=== PATIENT | male | born 1950 | race Caucasian/White ===

== ENCOUNTER 2017-07-01 13:23 | Inpatient (IN) | payer MEDICARE ==
[2017-07-01] VITALS (9 sets, daily range): BP systolic 135–169; BP diastolic 72–96; PULSE 62–75; RESP 16–18; TEMP 97.7–97.9; O2SAT 97–100
[~2017-07-01] VITALS: Ht 165.1 cm; Wt 78.6 kg
[2017-07-01] MEDS ORDERED: SODIUM CHLOR 0.9% 1000 ML INJ 1,000 ML IV ONE (13:41)
[2017-07-01 13:55] LABS: BASOPHIL % 0.4 % (0.0-2.0); EOSINOPHIL % 0.9 % (0.0-4.0); HEMATOCRIT 42.1 % (39.0-51.0); LYMPH % 17.6 % (9.0-44.0); LYMPHOCYTE # 0.9 TH/MM3 (1.0-4.8); MEAN CELL VOLUME 95.8 FL (80.0-100.0); MEAN CORPUSCULAR HEMOGLOBIN 31.9 PG (27.0-34.0); MEAN CORPUSCULAR HGB CONC 33.3 % (32.0-36.0); MEAN PLATELET VOLUME 7.2 FL (7.0-11.0); MONO % 7.4 % (0.0-8.0); MONOCYTE # 0.4 TH/MM3 (0-0.9); NEUT % 73.7 % (16.0-70.0); PLATELET COUNT 207 TH/MM3 (150-450); RED CELL DISTRIBUTION WIDTH 12.5 % (11.6-17.2); WHITE BLOOD COUNT 5.3 TH/MM3 (4.0-11.0)
[2017-07-01 14:03] LABS: CHLORIDE 104 MEQ/L (98-107); SODIUM (NA) 138 MEQ/L (136-145)
[2017-07-01 14:06] LABS: BICARBONATE 27.3 MEQ/L (21.0-32.0); CALCIUM 8.3 MG/DL (8.5-10.1); GLUCOSE,RANDOM 172 MG/DL (74-106)
[2017-07-01 14:07] LABS: BLOOD UREA NITROGEN 14 MG/DL (7-18); PROTHROMBIN TIME - PATIENT 10.4 SEC (9.8-11.6)
[2017-07-01 14:10] LABS: GLOMERULAR FILTRATION RATE 75 ML/MIN (>89)
--- NOTE | 2017-07-01 14:13 | RADRPT ---
EXAM DATE/TIME: 07/01/2017 13:45 [facility] COMPARISON: No previous studies available for comparison. INDICATIONS : Stroke alert . Dizziness. RADIATION DOSE: 62.61 CTDIvol (mGy) This report was called by Dr. Tran to Dr. Weiner at 2: 05 PM? MEDICAL HISTORY : Cerebrovascular disease. SURGICAL HISTORY : Carotid endarterectomy. Cerebellar stent. ENCOUNTER: Initial ACUITY: 1 day PAIN SCALE: 0/10 LOCATION: cranial TECHNIQUE: Multiple contiguous axial images were obtained of the head. Using automated exposure control and adj ustment of the mA and/or kV according to patient size, radiation dose was kept as low as reasonably a chievable to obtain optimal diagnostic quality images. DICOM format image data is available electro nically for review and comparison. FINDINGS: The bony calvarium is intact. Major anatomic landmarks are correctly situated normal ventricles no ev idence of cranial hemorrhage or extradural defect or mass effect. In the posterior left cerebellar hemisphere there is area of d iminished density over to centimeters in size which could represent an infarct of indeterminate age. Additionally in the left hemisphere cerebral towards the vertex there is an asymmetric prominence of sulci with internal to this low density in white matter in the possibility of infarct encephalomalaci a in the left posterior parietal occipital region. CONCLUSION: Abnormal scan. Low-density 2 cm sized posterior left cerebellar hemisphere suggesting edema or stroke indeterminate age. Findings in the left parieto-occipital region suggesting remote infarct. Patient would benefit from further evaluation with MRI to determine acuity Discussed with Dr. Weiner. At 2: 05 PM Geovani Tran MD on July 01, 2017 at 14:05 Board Certified Radiologist. This report was verified electronically.
[2017-07-01 14:14] LABS: TROPONIN I LESS THAN 0.02 NG/ML (0.02-0.05)
[2017-07-01] MEDS ORDERED: IODIXANOL 320 MG/ML 10 ML VIAL (for Rad CT) IVCONTRAST ONE (14:29)
--- NOTE | 2017-07-01 14:29 | PD ---
HPI Chief Complaint: Neuro Symptoms/ Deficits Time Seen by Provider: 13:35 Travel History International Travel<30 days: No Contact w/Intl Traveler<30days: No Traveled to known affect area: No History of Present Illness HPI Patient 66-year-old male presents emergency department for evaluation of sudden onset of dizziness approximately 45 minutes prior to arrival. 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 Patient states that his cousin used to work in healthcare and told him that if he ever had any symptoms that were concerning that he should present to the emergency department for evaluation of possible stroke. Patient denies any new focalized weakness denies any visual deficits. Denies any headaches. He states symptoms feel similar to her previous cerebellar stroke is had though not as severe. He's never had a history of vertigo. Denies any nausea vomiting. He states that he felt very unbalanced at home and normal spell. Denies any chest pain shortness of breath. Symptoms for 45 minutes, constant, associated signs symptoms and context as above PFSH Past Medical History Hx Anticoagulant Therapy: Yes High Cholesterol: Yes Cerebrovascular Accident: Yes Diminished Hearing: No Hypertension: Yes Immunizations Current: Yes Tetanus Vaccination: Unknown Influenza Vaccination: No Past Surgical History Cardiac Surgery: Yes (lt endarectomy) Other Surgery: Yes (stent cereebellum) Social History Alcohol Use: No Tobacco Use: No Substance Use: No Allergies-Medications (Allergen,Severity, Reaction): Coded Allergies: No Known Allergies (Verified Allergy, Unknown, 07/01/17) Reported Meds & Prescriptions Reported Meds & Active Scripts Active Reported Atorvastatin (Atorvastatin Calcium) 40 Mg Tab 40 Mg PO HS Losartan-Hydrochlorothiazide 50-12.5 Mg Tab 1 Tab PO DAILY Metoprolol Tartrate 25 Mg Tab 25 Mg PO BID Aspirin 325 Mg Tab 325 Mg PO DAILY Plavix (Clopidogrel Bisulfate) 75 Mg Tab 75 Mg PO DAILY Review of Systems Except as stated in HPI: all other systems reviewed are Neg Physical Exam Narrative GENERAL: Well-developed well-nourished no obvious distress SKIN: Focused skin assessment warm/dry. HEAD: Atraumatic. Normocephalic. EYES: Pupils equal and round. No scleral icterus. No injection or drainage. ENT: No nasal bleeding or discharge. Mucous membranes pink and moist. NECK: Trachea midline. No JVD. CARDIOVASCULAR: Regular rate and rhythm. No murmur appreciated. RESPIRATORY: No accessory muscle use. Clear to auscultation. Breath sounds equal bilaterally. GASTROINTESTINAL: Abdomen soft, non-tender, nondistended. Hepatic and splenic margins not palpable. MUSCULOSKELETAL: No obvious deformities. No clubbing. No cyanosis. No edema. NEUROLOGICAL: Awake and alert. Cranial nerves II through XII are grossly intact and nonfocal, 5 out of 5 strength in the left upper and left lower extremity, 4 out of 5 strength in the right upper and right lower extremity. There is no ataxia with tbvcle-znis-[id number] testing bilaterally, no ataxia with heel greenfield testing bilaterally. Patient attempts to ambulate when he rises out of a chair he does fall backwards into the chair again, on second attempt he has a wide-based gait no truncal ataxia but has a very deliberate slow gait, he was able to get into Romberg position when closing his eyes he rocks back and forth significantly but is able to correct himself. Babinski signs are downgoing bilaterally PSYCHIATRIC: Appropriate mood and affect; insight and judgment normal. Data Data Last Documented VS Vital Signs Date Time Temp Pulse Resp B/P (MAP) Pulse Ox O2 Delivery O2 Flow Rate FiO2 07/01/17 15:20 70 16 140/80 (100) 98 Room Air 07/01/17 13:30 97.7 Orders Orders Cath For Specimen (07/01/17 13:41) Neuro Checks Q2HX12,Q4H (07/01/17 13:41) Nursing Bedside Swallow Assess .ONCE (07/01/17 13:41) Activity Bed Rest (07/01/17 13:41) Diet Npo (07/01/17 Lunch) Prothrombin Time / Inr (Pt) (07/01/17 13:41) Act Partial Throm Time (Ptt) (07/01/17 13:41) Complete Blood Count With Diff (07/01/17 13:41) Basic Metabolic Panel (Bmp) (07/01/17 13:41) Fibrinogen (07/01/17 13:41) Creatine Kinase (Cpk) (07/01/17 13:41) Troponin I (07/01/17 13:41) Ua Includes Microscopic (07/01/17 13:41) Drug Screen, Random Urine (07/01/17 13:41) Type And Screen (07/01/17 13:41) Ct Brain W/O Iv Contrast(Rout) (07/01/17 ) Cta Brain W Iv Contrast W 3d (07/01/17 13:41) Cta Neck W Iv Contrast W 3d (07/01/17 13:41) Electrocardiogram (07/01/17 ) Consult Neurology (07/01/17 13:41) Sodium Chlor 0.9% 1000 Ml Inj (Ns 1000 M (07/01/17 13:41) Ecg Monitoring (07/01/17 13:41) Iv Access Insert/Monitor (07/01/17 13:41) NPO (07/01/17 13:41) Oximetry (07/01/17 13:41) Resp Oxygen Nc Stroke (07/01/17 ) (Hub Use Only)Inp Phy Cons/Ref (07/01/17 14:00) CKMB (07/01/17 13:30) CKMB% (07/01/17 13:30) Heparin Inj (Heparin Inj) (07/01/17 15:00) Thyroid Stimulating Hormone (07/01/17 14:22) Vitamin B12 (07/01/17 14:22) Lipid Profile (07/01/17 14:22) Hemoglobin (Hgb) A1c (07/01/17 14:22) Iodixanol 320 Inj (Rad Ct) (Visipaque 32 (07/01/17 14:29) Mri Brain W/O Contrast (07/01/17 15:55) Dipyridamole-Aspirin 200-25 Mg (Aggrenox (07/01/17 21:00) Aspirin Ec (Ecotrin Ec) (07/02/17 09:00) Us Carotid Arteries Comp Bilat (07/01/17 ) Admit Order (Ed Use Only) (07/01/17 ) Labs Laboratory Tests Test 07/01/17 13:30 White Blood Count 5.3 TH/MM3 Red Blood Count 4.40 MIL/MM3 Hemoglobin 14.0 GM/DL Hematocrit 42.1 % Mean Corpuscular Volume 95.8 FL Mean Corpuscular Hemoglobin 31.9 PG Mean Corpuscular Hemoglobin Concent 33.3 % Red Cell Distribution Width 12.5 % Platelet Count 207 TH/MM3 Mean Platelet Volume 7.2 FL Neutrophils (%) (Auto) 73.7 % Lymphocytes (%) (Auto) 17.6 % Monocytes (%) (Auto) 7.4 % Eosinophils (%) (Auto) 0.9 % Basophils (%) (Auto) 0.4 % Neutrophils # (Auto) 4.0 TH/MM3 Lymphocytes # (Auto) 0.9 TH/MM3 Monocytes # (Auto) 0.4 TH/MM3 Eosinophils # (Auto) 0.0 TH/MM3 Basophils # (Auto) 0.0 TH/MM3 CBC Comment DIFF FINAL Differential Comment Prothrombin Time 10.4 SEC Prothromb Time International Ratio 1.0 RATIO Activated Partial Thromboplast Time 24.3 SEC Fibrinogen 265 mg/dL Blood Urea Nitrogen 14 MG/DL Creatinine 1.00 MG/DL Random Glucose 172 MG/DL Calcium Level 8.3 MG/DL Sodium Level 138 MEQ/L Potassium Level 3.7 MEQ/L Chloride Level 104 MEQ/L Carbon Dioxide Level 27.3 MEQ/L Anion Gap 7 MEQ/L Estimat Glomerular Filtration Rate 75 ML/MIN Total Creatine Kinase 351 U/L Creatine Kinase MB 4.7 NG/ML Creatine Kinase MB % 1.3 % Troponin I LESS THAN 0.02 NG/ML Triglycerides Level 63 MG/DL Cholesterol Level 101 MG/DL LDL Cholesterol 49 MG/DL HDL Cholesterol 39.0 MG/DL Cholesterol/HDL Ratio 2.58 RATIO Vitamin B12 Level 768 PG/ML Thyroid Stimulating Hormone 3rd Gen 2.170 uIU/ML MDM Medical Screen Exam Complete: Yes Emergency Medical Condition: Yes Differential Diagnosis Vertigo, cerebellar stroke, vertebral artery stroke, carotid stenosis. Narrative Course Patient roomed in emergency department, he has vague symptoms but certainly significant risk factors for a cerebellar stroke, given that he isn't sided window stroke alert was activated and the patient was taken expeditiously to CAT scan which was negative without contrast. The CT angiogram did show significant stenosis of the right carotid system and the patient has had endarterectomy of the left carotid in the past. The patient was discussed with who states that given the mild symptoms the patient should only be offered TPA if he was having gait instability, we discussed his gait instability and the patient was therefore offered TPA by me. After according the risks benefits competitions and alternatives including the risk of life- threatening bleeding the patient states that his symptoms are mild enough that he would like to decline TPA at this time. The patient was then recommended for MRI of his brain as well as admission to the hospital given the level of stenosis for further workup. He is agreeable. The patient was discussed with Dr. Tucker will be admitted to the main hospital as he may need vascular surgery consult. Symptoms of dizziness have persisted in the emergency department but no ataxia multiple examinations. Blood work otherwise unremarkable. He is stable for floor admission. Stroke Alert NIHSS NIH Stroke Scale Result: 0 NIHSS Time Completed: 13:40 Diagnosis Diagnosis: Primary Impression: Gait disorder Admitting Physician Requests: Admit Condition: Stable Fernando Weiner MD Jul 01, 2017 14:29
--- NOTE | 2017-07-01 14:29 | RADRPT ---
EXAM DATE/TIME: 07/01/2017 13:45 [facility] COMPARISON: CT BRAIN W/O CONTRAST, July 01, 2017, 13:45. INDICATIONS : Stroke alert. Dizziness. IV CONTRAST: 85 cc Visipaque (iodixanol) IV ; Cumulative dose for multiple exams. RADIATION DOSE: 43.13 CTDIvol (mGy) ; Combined studies MEDICAL HISTORY : Cerebrovascular disease. SURGICAL HISTORY : Carotid endarterectomy. Cerebellar stent. ENCOUNTER: Initial ACUITY: 1 day PAIN SCALE: 0/10 LOCATION: cranial TECHNIQUE: Volumetric scanning was performed using a multi-row detector CT scanner. The data was post processed with a variety of visualization algorithms including full volume maximum intensity projection, multi -planar sliding thin slab reformation, curved planar reformation, and surface rendering techniques. Using automated exposure control and adjustment of the mA and/or kV according to patient size, radiat ion dose was kept as low as reasonably achievable to obtain optimal diagnostic quality images. DICO M format image data is available electronically for review and comparison. FINDINGS: There is excellent visualization of the major intracranial arteries out to the second-order branch ve ssels. There is no evidence for aneurysm, vessel truncation or stenosis, and no evidence for vascula r malformation. The anterior communicating artery is patent and the posterior communicating arteries are not patent w ith the posterior cerebral arteries originate off the basilar vertebral posterior system CONCLUSION: Normal examination. Geovani Tran MD on July 01, 2017 at 14:23 Board Certified Radiologist. This report was verified electronically.
[2017-07-01] MEDS ORDERED: METO25TA3 PO (14:39)
[2017-07-01] MEDS ORDERED: ATOR40TA16 PO (14:39)
[2017-07-01] MEDS ORDERED: ASPI-183 PO (14:39)
[2017-07-01] MEDS ORDERED: PLAV75TA29 PO (14:39)
[2017-07-01] MEDS ORDERED: LOSA50TA2 PO (14:39)
--- NOTE | 2017-07-01 14:41 | RADRPT ---
EXAM DATE/TIME: 07/01/2017 13:45 [facility] COMPARISON: CTA BRAIN W 3D RECON, July 01, 2017, 13:45. CT BRAIN W/O CONTRAST, July 01, 2017, 13:45. INDICATIONS : Stroke alert. Dizziness. IV CONTRAST: 85 cc Visipaque (iodixanol) IV ; Cumulative dose for multiple exams. RADIATION DOSE: 43.13 CTDIvol (mGy) ; Combined studies MEDICAL HISTORY : Cerebrovascular disease. SURGICAL HISTORY : Carotid endarterectomy. Cerebellar stent. ENCOUNTER: Initial ACUITY: 1 day PAIN SCALE: 0/10 LOCATION: neck Elevated flow velocities and ICA/CCA ratios have been found to correlate with increased degrees of vessel stenosis, calculated as percentage of diameter relative to a normal segment of distal ICA/CCA. TECHNIQUE: Volumetric scanning was performed using a multirow detector CT scanner. The data was post processed with a variety of visualization algorithms including full-volume maximum intensity projection, multip lanar sliding thin-slab reformation, curved-planar reformation, and surface-rendering techniques. Us ing automated exposure control and adjustment of the mA and/or kV according to patient size, radiatio n dose was kept as low as reasonably achievable to obtain optimal diagnostic quality images. DICOM f ormat image data is available electronically for review and comparison. FINDINGS: AORTIC ARCH: There is a three-vessel origin of the great vessels from the aorta. No evidence of ostial narrowing. RIGHT CAROTID: There is a stenotic plaque at the origin of the right internal carotid and both calcific carotid deja ry is intact. The carotid bulb has a normal configuration without and soft LEFT CAROTID: There is a short segment cage type narrowing at the origin of the left internal carotid may be border line stenotic. VERTEBRALS: Left vertebral is dominant with a dense calcific plaque at its origin. A right vertebral artery at it s origin and the lower neck is not visualized but is interspersed diminutive in the mid and upper cer vical spine CONCLUSION: There is a stenotic soft and calcific plaque initial segment of the right internal carotid artery. Th is could be further evaluated with ultrasound. Short segment cage type circumferential lesion possi devonte borderline stenotic at the origin the left internal carotid artery. Dense calcium deposit at the origin of the dominant left vertebral artery. Right vertebral artery is not visualized at its origin however is seen there is a diminutive small vessel in the mid to upper cervical spine. Geovani Tran MD on July 01, 2017 at 14:30 Board Certified Radiologist. This report was verified electronically.
[2017-07-01] MEDS: HEPARIN SODIUM - SQ 10,000 UNITS/ML VIAL SQ SCH ×2 (15:35→22:39)
--- NOTE | 2017-07-01 16:13 | PD.CONS ---
History of Present Illness Service Neurology Consult Requested By er Reason for Consult stroke alert Primary Care Physician Non-Staff History of Present Illness 66 y/o m presents to er for dizziness. stroke alert called. hx of stroke 2011 with symptoms of severe vertigo, n/v, imbalance. found to have cerebellar infarct. then had a stent placed at [facility] in the posterior circulation? current symptoms consistent of mild gait imbalance and lightheadedness, no vertigo. denies any focal weakness or vision loss. pt was offered iv tpa for worsening gait, however he elects to hold off understanding r/b. residuals from previous infarct include gait d/o, occasional speech changes and left sided dystaxia at times. he takes aspirin and plavix and [place]. on disability from previous strokes. had a left cea 2004. ct brain old left high parietal and left cerebellar infarct. cta brain nml. cta carotids- rt carotid plaque Past Medical History Hx Anticoagulant Therapy: Yes High Cholesterol: Yes Cerebrovascular Accident: Yes Hypertension: Yes Past Surgical History Cardiac Surgery: Yes (lt endarterectomy) Other Surgery: Yes (stent posterior circulation?) Social History Alcohol Use: No Tobacco Use: No Substance Use: No Allergies-Medications (Allergen,Severity, Reaction): Coded Allergies: No Known Allergies (Verified Allergy, Unknown, 07/01/17) Review of Systems All other ROS: ROS reviewed as documented in chart Past Family Social History Allergies: Coded Allergies: No Known Allergies (Verified Allergy, Unknown, 07/01/17) Active Ordered Medications Current Medications Medications (Trade) Dose Ordered Sig/Justin Route Start Time Stop Time Status Last Admin Sodium Chloride 1,000 ml @ 70 mls/hr [id number] ONCE IV 07/01/17 13:41 07/02/17 03:58 07/01/17 14:07 (Heparin Inj) 5,000 units Q8H SQ 07/01/17 15:00 07/01/17 15:35 Exam I&O / VS Vital Signs Date Time Temp Pulse Resp B/P (MAP) Pulse Ox O2 Delivery O2 Flow Rate FiO2 07/01/17 14:15 75 98 Room Air 07/01/17 14:09 98 Room Air 07/01/17 14:09 98 Room Air 07/01/17 14:06 75 18 135/78 (97) 98 Room Air 07/01/17 13:30 97.7 73 18 165/74 (104) 100 General: Alert and Oriented, No acute distress Eye: EOMI Respiratory: Non-labored respirations Cardiology: Normal rate Musculoskeletal: ROM Neurologic: Alert, Oriented, Normal sensory, CN II-XII intact, Normal DTR's Psychiatric: Cooperative, Appropriate mood & affect, Normal judgement Exam Comments a and ox 3, follows, rare episodes of dysfluency, eomi, vff, ou 3-2mm, no drift but mild l>rt ue dystaxia, msr sym,, pin nml Review/Management Diagnosis/Plan: (1) Gait disorder ICD Codes: R26.9 - Unspecified abnormalities of gait and mobility Status: Acute Plan: acute on chronic possible tia vs htn urgency, vascular constriction recs mri brain if feasible with stent echo carotid u/s to f/u rt/left stenosis- although not felt to be cause of his current symptoms change to aggrenox lipids/tsh/hba1c bp contol exercise p.t. 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
[2017-07-01] MEDS ORDERED: GLUCAGON 1 MG/ML VIAL OTHER PRN (16:30)
[2017-07-01] MEDS ORDERED: DEXTROSE 50% IN WATER 50 ML VIAL(D50) IV PUSH PRN (16:30)
[2017-07-01] MEDS ORDERED: HEPARIN-D5W 25,000 U/250 ML 250 ML IV PRN (16:30)
[2017-07-01] MEDS ORDERED: SODIUM CHLORIDE 0.9% FLUSH 10 ML FLUSH IV FLUSH PRN (16:30)
[2017-07-01 16:38] LABS: CHOLESTEROL 101 MG/DL (120-200); TRIGLYCERIDES 63 MG/DL (42-150)
--- NOTE | 2017-07-01 16:40 | RADRPT ---
EXAM DATE/TIME: 07/01/2017 16:04 [facility] COMPARISON: CT BRAIN W/O CONTRAST, July 01, 2017, 13:45. INDICATIONS : Stroke alert. MEDICAL HISTORY : Stroke SURGICAL HISTORY : Carotid endarterectomy. Fusion, lumbar. ENCOUNTER: Initial ACUITY: 1 day PAIN SCORE: 0/10 LOCATION: Head TECHNIQUE: Multiplanar, multisequence MRI of the brain was performed without contrast. FINDINGS: CEREBRUM: Remote infarcts left occipital, parietal lobe and left occipital lobe. The ventricles are normal for age. No evidence of midline shift, mass lesion, hemorrhage or acute infarction. No extraaxial fluid collections are seen. The pituitary gland and suprasellar cistern are normal in configuration. WHITE MATTER: No significant signal abnormalities are seen in the white matter. POSTERIOR FOSSA: The brainstem is intact. The 4th ventricle is midline. The cerebellopontine angle is unremarkable. The cerebellar tonsils are normal in position. DIFFUSION IMAGING: No focal areas of restricted diffusion are seen. No evidence of acute infarction. EXTRACRANIAL: The visualized portions of the orbits and paranasal sinuses are unremarkable. CONCLUSION: 1. Remote infarcts left cerebellum and left parietal and left occipital lobes 2. No acute infarct. Jairo Rivas MD on July 01, 2017 at 16:35 Board Certified Radiologist. This report was verified electronically.
[2017-07-01] MEDS: INSULIN ASPART SUPPLEMENTAL SCALE SQ SCH ×2 (17:00→22:39)
[2017-07-01 17:03] LABS: HEMATOCRIT 40.6 % (39.0-51.0); HEMOGLOBIN 13.6 GM/DL (13.0-17.0); MEAN CELL VOLUME 94.8 FL (80.0-100.0); MEAN CORPUSCULAR HEMOGLOBIN 31.8 PG (27.0-34.0); MEAN CORPUSCULAR HGB CONC 33.6 % (32.0-36.0); MEAN PLATELET VOLUME 7.1 FL (7.0-11.0); PLATELET COUNT 200 TH/MM3 (150-450); RED BLOOD COUNT 4.28 MIL/MM3 (4.50-5.90); RED CELL DISTRIBUTION WIDTH 12.8 % (11.6-17.2); WHITE BLOOD COUNT 6.2 TH/MM3 (4.0-11.0)
[2017-07-01 17:03] LABS: CHOLESTEROL/ HDL RATIO 2.58 RATIO; LDL CHOLESTEROL 49 MG/DL (0-99)
[2017-07-01 21:51] LABS: HEMOGLOBIN A1C 6.6 % (4.3-6.0)
[2017-07-01 21:52] LABS: HEMOGLOBIN A1C 6.6 % (4.3-6.0)
[2017-07-01] MEDS: SODIUM CHLORIDE 0.9% FLUSH 10 ML FLUSH IV FLUSH SCH (22:39)
[2017-07-01] MEDS: DIPYRIDAMOLE/ASPIRIN 200 MG/25 MG CAP PO SCH (22:39)
[2017-07-02 00:13] VITALS: BP 137/84; PULSE 72; RESP 17; TEMP 97.8; O2SAT 96
[2017-07-02 02:58] VITALS: PULSE 65
[2017-07-02 04:52] VITALS: BP 149/79; PULSE 79; RESP 17; TEMP 97.8; O2SAT 98
[2017-07-02] MEDS: HEPARIN SODIUM - SQ 10,000 UNITS/ML VIAL SQ SCH ×2 (06:02→15:00)
[2017-07-02] MEDS: INSULIN ASPART SUPPLEMENTAL SCALE SQ SCH ×2 (08:00→12:00)
--- NOTE | 2017-07-02 08:34 | HHI.PR ---
Review/Management Diagnosis/Plan: (1) Gait disorder ICD Codes: R26.9 - Unspecified abnormalities of gait and mobility Status: Acute Plan: acute on chronic possible tia vs htn urgency, vascular constriction mri brain no acute stroke lipids in good range hba1c >6 left cervicocephalic spasm- will add flexeril prn recs neuro stable bp control carotid u/s to f/u rt/left stenosis- pending exercise p.t. 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 ICD Codes: Z86.73 - Personal history of transient ischemic attack (TIA), and cerebral infarction without residual deficits Status: Chronic (4) HTN (hypertension) ICD Codes: I10 - Essential (primary) hypertension Status: Chronic Plan: resume bp meds long-term goal 120/80 Subjective Subjective Comments No acute events reported No headache +mild left neck pain No chest pain No dyspnea Active Medications Current Medications Medications (Trade) Dose Ordered Sig/Justin Route Start Time Stop Time Status Last Admin (Heparin Inj) 5,000 units Q8H SQ 07/01/17 15:00 07/02/17 06:02 (Aggrenox 200-25 Mg) 1 cap Q12HR PO 07/01/17 21:00 07/01/17 22:39 (Ecotrin Ec) 81 mg DAILY PO 07/02/17 09:00 (NS Flush) 2 ml BID IV FLUSH 07/01/17 21:00 (NS Flush) 2 ml UNSCH PRN IV FLUSH 07/01/17 16:30 (Aspirin) 325 mg DAILY PO 07/02/17 09:00 (NovoLOG SUPPLEMENTAL SCALE) 1 ACHS SQ 07/01/17 17:00 (D50w (Vial) Inj) 50 ml UNSCH PRN IV PUSH 07/01/17 16:30 (Glucagon Inj) 1 mg UNSCH PRN OTHER 07/01/17 16:30 Heparin Sodium/ Dextrose 250 ml @ 9 mls/hr TITRATE PRN IV 07/01/17 16:30 Allergies Allergies Coded Allergies No Known Allergies (Verified Allergy, Unknown, 07/01/17) Review of Systems All other ROS: ROS reviewed as documented in chart Exam I&O / VS Vital Signs Date Time Temp Pulse Resp B/P (MAP) Pulse Ox O2 Delivery O2 Flow Rate FiO2 07/02/17 04:52 97.8 79 17 149/79 (102) 98 07/02/17 02:58 65 07/02/17 00:13 97.8 72 17 137/84 (101) 96 07/01/17 21:12 97.9 68 17 169/96 (120) 97 07/01/17 20:15 75 18 159/72 (101) 98 07/01/17 17:50 62 18 154/92 (112) 98 07/01/17 17:20 98 21 07/01/17 16:28 65 17 153/79 (103) 98 Room Air 07/01/17 15:20 70 16 140/80 (100) 98 Room Air 07/01/17 14:15 75 98 Room Air 07/01/17 14:09 98 Room Air 07/01/17 14:09 98 Room Air 07/01/17 14:06 75 18 135/78 (97) 98 Room Air 07/01/17 13:30 97.7 73 18 165/74 (104) 100 General: Alert and Oriented, No acute distress Eye: EOMI Respiratory: Non-labored respirations Cardiology: Normal rate Musculoskeletal: ROM Neurologic: Alert, Oriented, Normal sensory, CN II-XII intact, Normal DTR's Psychiatric: Cooperative, Appropriate mood & affect, Normal judgement Exam Comments a and ox 3, follows, more fluent, +mild tenderness in the left trap region, spasm, eomi, vff, ou 3-2mm, no drift but mild l>rt ue dystaxia, msr sym,, pin nml Objective Micro and Labs Laboratory Tests Test 07/01/17 13:30 07/01/17 16:56 White Blood Count 5.3 6.2 Red Blood Count 4.40 4.28 Hemoglobin 14.0 13.6 Hematocrit 42.1 40.6 Mean Corpuscular Volume 95.8 94.8 Mean Corpuscular Hemoglobin 31.9 31.8 Mean Corpuscular Hemoglobin Concent 33.3 33.6 Red Cell Distribution Width 12.5 12.8 Platelet Count 207 200 Mean Platelet Volume 7.2 7.1 Neutrophils (%) (Auto) 73.7 Lymphocytes (%) (Auto) 17.6 Monocytes (%) (Auto) 7.4 Eosinophils (%) (Auto) 0.9 Basophils (%) (Auto) 0.4 Neutrophils # (Auto) 4.0 Lymphocytes # (Auto) 0.9 Monocytes # (Auto) 0.4 Eosinophils # (Auto) 0.0 Basophils # (Auto) 0.0 CBC Comment DIFF FINAL Differential Comment Prothrombin Time 10.4 Prothromb Time International Ratio 1.0 Activated Partial Thromboplast Time 24.3 24.7 Fibrinogen 265 Blood Urea Nitrogen 14 Creatinine 1.00 Random Glucose 172 Calcium Level 8.3 Sodium Level 138 Potassium Level 3.7 Chloride Level 104 Carbon Dioxide Level 27.3 Anion Gap 7 Estimat Glomerular Filtration Rate 75 Hemoglobin A1c 6.6 6.6 Total Creatine Kinase 351 Creatine Kinase MB 4.7 Creatine Kinase MB % 1.3 Troponin I LESS THAN 0.02 Triglycerides Level 63 Cholesterol Level 101 LDL Cholesterol 49 HDL Cholesterol 39.0 Cholesterol/HDL Ratio 2.58 Vitamin B12 Level 768 Thyroid Stimulating Hormone 3rd Gen 2.170 Problem Qualifiers (1) HTN (hypertension): Qualified Codes: I10 - Essential (primary) hypertension James Murguia MD Jul 02, 2017 08:34
[2017-07-02 08:44] VITALS: BP 161/81; PULSE 68; RESP 18; TEMP 97.7; O2SAT 96
[2017-07-02] MEDS: SODIUM CHLORIDE 0.9% FLUSH 10 ML FLUSH IV FLUSH SCH (08:55)
[2017-07-02] MEDS: DIPYRIDAMOLE/ASPIRIN 200 MG/25 MG CAP PO SCH (08:57)
[2017-07-02] MEDS ORDERED: ASPIRIN EC 81 MG TABEC PO SCH (09:00)
[2017-07-02] MEDS ORDERED: ASPIRIN 325 MG TAB PO SCH (09:00)
[2017-07-02 09:11] LABS: CHOLESTEROL/ HDL RATIO 2.88 RATIO; HDL CHOLESTEROL 36.4 MG/DL (40.0-60.0)
--- NOTE | 2017-07-02 09:25 | EKG ---
Date Performed: 07/01/2017 Time Performed: 14:34:13 PTAGE: 66 years EKG: Sinus rhythm INTRAVENTRICULAR CONDUCTION DELAY PROBABLE LATERAL MYOCARDIAL INFARCTION ABNORMAL ECG NO PREVIOUS TRACING DOCTOR: Jacob Liang Interpretating Date/Time 07/02/2017 09:23:13
--- NOTE | 2017-07-02 10:37 | RADRPT ---
EXAM DATE/TIME: 07/02/2017 09:19 [facility] COMPARISON: No previous studies available for comparison. INDICATIONS : Cerebrovascular accident. MEDICAL HISTORY : Hypercholesterolemia. Hypertension. CVA. Anticoagulant therapy, Heparin. SURGICAL HISTORY : Left carotid endarectomy. Back surgery. Stent cerebellum. ENCOUNTER: Initial ACUITY: 2 days PAIN SCORE: 0/10 LOCATION: Bilateral neck PEAK SYSTOLIC VELOCITIES (cm/sec): ICA/CCA RATIO: Right: 1.6 Left: 1.8 ICA: Right: 81 Left: 104 CCA: Right: 74 Left: 72 ECA: Right: 179 Left: 123 VERTEBRAL: Right: Not visualized absent Left: 95 antegrade Elevated flow velocities and ICA/CCA ratios have been found to correlate with increased degrees of vessel stenosis, calculated as percentage of diameter relative to a normal segment of distal ICA/CCA FINDINGS: RIGHT CAROTID: No significant stenosis is visualized. Scattered plaque. The waveforms are within normal limits. LEFT CAROTID: No significant stenosis is visualized. Scattered plaque. The waveforms are within normal limits. VERTEBRAL ARTERIES: Antegrade flow is seen in both vertebral arteries. MISCELLANEOUS: None. CONCLUSION: 1. Scattered plaque. 2. No hemodynamically significant stenosis in either carotid artery. Jairo Rivas MD on July 02, 2017 at 10:33 Board Certified Radiologist. This report was verified electronically.
[2017-07-02] MEDS ORDERED: ONDANSETRON HCL 4 MG/2 ML VIAL IV PUSH PRN (11:00)
[2017-07-02] MEDS ORDERED: DOCUSATE SODIUM 50 MG/SENNA 8.6 MG TAB PO PRN (11:00)
[2017-07-02] MEDS ORDERED: TEMAZEPAM 15 MG CAP PO PRN (11:00)
[2017-07-02] MEDS ORDERED: ACETAMINOPHEN 325 MG TAB PO PRN (11:00)
[2017-07-02] MEDS ORDERED: ALUMINUM/MAGNESIUM/SIMETH 30 ML CUP PO PRN (11:00)
[2017-07-02 12:43] VITALS: BP 153/71; PULSE 69; RESP 18; TEMP 97.7; O2SAT 18
--- NOTE | 2017-07-02 13:59 | HHI.HP ---
HPI Service [facility] Primary Care Physician Non-Staff Admission Diagnosis Possible Acute Cerebellar Stroke. 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 Patient had no focal deficits Arrival, a stroke alert was called and neurology was consulted. He was offered TPA which he declined. However brain MRI did no show any evidence of any acute infarct. He has no complaint of chest pain or shortness of breath. Since admission, his symptoms resolved. Brain MRA pending Review of Systems Except as stated in HPI: all other systems reviewed are Neg Past Family Social History Past Medical History High Cholesterol: Yes Cerebrovascular Accident: Yes Hypertension: Yes Past Surgical History Cardiac Surgery: Yes (lt endarterectomy) Other Surgery: Yes (stent posterior circulation?) Reported Medications Atorvastatin (Atorvastatin Calcium) 40 Mg Tab 40 Mg PO HS Losartan-Hydrochlorothiazide 50-12.5 Mg Tab 1 Tab PO DAILY Metoprolol Tartrate 25 Mg Tab 25 Mg PO BID Aspirin 325 Mg Tab 325 Mg PO DAILY Plavix (Clopidogrel Bisulfate) 75 Mg Tab 75 Mg PO DAILY Allergies: Coded Allergies: No Known Allergies (Verified Allergy, Unknown, 07/01/17) Family History Father from complication of CAD Mother from complication of breast cancer Social History Denies tobacco, illicit drug intake however reports social alcohol use Physical Exam Vital Signs Vital Signs Date Time Temp Pulse Resp B/P (MAP) Pulse Ox O2 Delivery O2 Flow Rate FiO2 07/02/17 12:43 97.7 69 18 153/71 (98) 18 07/02/17 08:44 97.7 68 18 161/81 (107) 96 07/02/17 04:52 97.8 79 17 149/79 (102) 98 07/02/17 02:58 65 07/02/17 00:13 97.8 72 17 137/84 (101) 96 07/01/17 21:12 97.9 68 17 169/96 (120) 97 07/01/17 20:15 75 18 159/72 (101) 98 07/01/17 17:50 62 18 154/92 (112) 98 07/01/17 17:20 98 21 07/01/17 16:28 65 17 153/79 (103) 98 Room Air 07/01/17 15:20 70 16 140/80 (100) 98 Room Air 07/01/17 14:15 75 98 Room Air 07/01/17 14:09 98 Room Air 07/01/17 14:09 98 Room Air 07/01/17 14:06 75 18 135/78 (97) 98 Room Air Physical Exam GENERAL: This is a well-nourished, well-developed patient, in no apparent distress. SKIN: No rashes, ecchymoses or lesions. Cool and dry. HEAD: Atraumatic. Normocephalic. No temporal or scalp tenderness. EYES: Pupils equal round and reactive. Extraocular motions intact. No scleral icterus. No injection or drainage. ENT: Nose without bleeding, purulent drainage or septal hematoma. Throat without erythema, tonsillar hypertrophy or exudate. Uvula midline. Airway patent. NECK: Trachea midline. No JVD or lymphadenopathy. Supple, nontender, no meningeal signs. CARDIOVASCULAR: Regular rate and rhythm without murmurs, gallops, or rubs. RESPIRATORY: Clear to auscultation. Breath sounds equal bilaterally. No wheezes , rales, or rhonchi. GASTROINTESTINAL: Abdomen soft, non-tender, nondistended. No hepato-splenomegaly , or palpable masses. No guarding. MUSCULOSKELETAL: Extremities without clubbing, cyanosis, or edema. No joint tenderness, effusion, or edema noted. No calf tenderness. Negative Homans sign bilaterally. NEUROLOGICAL: Awake and alert. Cranial nerves II through XII intact. Motor and sensory grossly within normal limits. Five out of 5 muscle strength in all muscle groups. Normal speech. Laboratory Laboratory Tests Test 07/01/17 16:56 07/02/17 07:06 White Blood Count 6.2 Red Blood Count 4.28 Hemoglobin 13.6 Hematocrit 40.6 Mean Corpuscular Volume 94.8 Mean Corpuscular Hemoglobin 31.8 Mean Corpuscular Hemoglobin Concent 33.6 Red Cell Distribution Width 12.8 Platelet Count 200 Mean Platelet Volume 7.1 Activated Partial Thromboplast Time 24.7 Hemoglobin A1c 6.6 Triglycerides Level 134 Cholesterol Level 105 LDL Cholesterol 42 HDL Cholesterol 36.4 Cholesterol/HDL Ratio 2.88 Result Diagram: 07/01/17 1656 07/01/17 1330 Imaging Last Impressions Carotid Artery Ultrasound 07/02/17 0000 Signed Impressions: Service Date/Time: Sunday, July 02, 2017 09:19 - CONCLUSION: 1. Scattered plaque. 2. No hemodynamically significant stenosis in either carotid artery. Jairo Rivas MD Brain MRI 07/01/17 1555 Signed Impressions: Service Date/Time: Saturday, July 01, 2017 16:04 - CONCLUSION: 1. Remote infarcts left cerebellum and left parietal and left occipital lobes 2. No acute infarct. Jairo Rivas MD Neck CTA 07/01/17 1341 Signed Impressions: Service Date/Time: Saturday, July 01, 2017 13:45 - CONCLUSION: There is a stenotic soft and calcific plaque initial segment of the right internal carotid artery. This could be further evaluated with ultrasound. Short segment cage type circumferential lesion possibly borderline stenotic at the origin the left internal carotid artery. Dense calcium deposit at the origin of the dominant left vertebral artery. Right vertebral artery is not visualized at its origin however is seen there is a diminutive small vessel in the mid to upper cervical spine. Geovani Tran MD Head CTA 07/01/17 1341 Signed Impressions: Service Date/Time: Saturday, July 01, 2017 13:45 - CONCLUSION: Normal examination. Geovani Tran MD Head CT 07/01/17 0000 Signed Impressions: Service Date/Time: Saturday, July 01, 2017 13:45 - CONCLUSION: Abnormal scan. Low-density 2 cm sized posterior left cerebellar hemisphere suggesting edema or stroke indeterminate age. Findings in the left parieto-occipital region suggesting remote infarct. Patient would benefit from further evaluation with MRI to determine acuity Discussed with Dr. Weiner. At 2: 05 PM MD Rosario Colindres VTE Risk Assessment Caprini VTE Risk Assessment: Mod/High Risk (score >= 2) Caprini Risk Assessment Model Point Value = 1 Point Value = 2 Point Value = 3 Point Value = 5 Age 41-60 Minor surgery BMI > 25 kg/m2 Swollen legs Varicose veins or History of unexplained or recurrent spontaneous Oral contraceptives or hormone replacement Sepsis (< 1 month) Serious lung disease, including pneumonia (< 1 month) Abnormal pulmonary function Acute myocardial infarction Congestive heart failure (< 1 month) History of inflammatory bowel disease Medical patient at bed rest Age 61-74 Arthroscopic surgery Major open surgery (> 45 min) Laparoscopic surgery (> 45 min) Malignancy Confined to bed (> 72 hours) Immobilizing plaster cast Central venous access Age >= 75 History of VTE Family history of VTE Factor V Leiden Prothrombin [id number] Lupus anticoagulant Anticardiolipin antibodies Elevated serum homocysteine Heparin-induced thrombocytopenia Other congenital or acquired thrombophilia Stroke (< 1 month) Elective arthroplasty Hip, pelvis, or leg fracture Acute spinal cord injury (< 1 month) Prophylaxis Regimen Total Risk Factor Score Risk Level Prophylaxis Regimen 0-1 Low Early ambulation 2 Moderate Order ONE of the following: *Sequential Compression Device (SCD) *Heparin 5000 units SQ BID 3-4 Higher Order ONE of the following medications: *Heparin 5000 units SQ TID *Enoxaparin/Lovenox 40 mg SQ daily (WT < 150 kg, CrCl > 30 mL/min) *Enoxaparin/Lovenox 30 mg SQ daily (WT < 150 kg, CrCl > 10-29 mL/min) *Enoxaparin/Lovenox 30 mg SQ BID (WT < 150 kg, CrCl > 30 mL/min) AND/OR *Sequential Compression Device (SCD) 5 or more Highest Order ONE of the following medications: *Heparin 5000 units SQ TID (Preferred with Epidurals) *Enoxaparin/Lovenox 40 mg SQ daily (WT < 150 kg, CrCl > 30 mL/min) *Enoxaparin/Lovenox 30 mg SQ daily (WT < 150 kg, CrCl > 10-29 mL/min) *Enoxaparin/Lovenox 30 mg SQ BID (WT < 150 kg, CrCl > 30 mL/min) AND *Sequential Compression Device (SCD) Assessment and Plan Problem List: (1) Gait disorder ICD Code: R26.9 - Unspecified abnormalities of gait and mobility Status: Acute (2) Benign hypertension ICD Code: I10 - Essential (primary) hypertension (3) CAD (coronary artery disease) ICD Code: I25.10 - Atherosclerotic heart disease of [place] coronary artery without angina pectoris (4) Chronic ischemic vertebrobasilar artery cerebellar stroke ICD Code: Z86.73 - Personal history of transient ischemic attack (TIA), and cerebral infarction without residual deficits Status: Chronic (5) Chronic ischemic left MCA stroke ICD Code: I69.30 - Unspecified sequelae of cerebral infarction Status: Chronic (6) HTN (hypertension) ICD Code: I10 - Essential (primary) hypertension Status: Chronic Assessment and Plan 66-year-old man with Gait disorder [place] to be possible complication of TIA versus hypertension urgency Brain MRI noted and review by me without any acute stroke Brain MRA pending Carotid ultrasound pending to rule out significant stenosis Appreciate input from neurology PT to treat and eval History of chronic ischemic left MCA stroke History of chronic ischemic vertebrobasilar artery cerebellar stroke Brain MRI noted and review without any evidence of acute stroke Brain MRA pending Continue with aspirin, Plavix, statin Continue BP control Hypertension Losartan-Hydrochlorothiazide 50-12.5 Mg Tab 1 Tab PO DAILY Metoprolol Tartrate 25 Mg Tab 25 Mg PO BID Hyperlipidemia Continue with Pravachol DVT prophylaxis: Bilateral SCDs Code Status Full code Discussed Condition With Patient Physician Certification 2 Midnight Certification Type: Admission for Inpatient Services Order for Inpatient Services The services are ordered in accordance with Medicare regulations or non- Medicare payer requirements, as applicable. In the case of services not specified as inpatient-only, they are appropriately provided as inpatient services in accordance with the 2-midnight benchmark. Estimated LOS (days): 2 days is the estimated time the patient will need to remain in the hospital, assuming treatment plan goals are met and no additional complications. Post-Hospital Plan: Not yet determined Problem Qualifiers (1) HTN (hypertension): Qualified Codes: I10 - Essential (primary) hypertension Jairo Daigle MD Jul 02, 2017 13:59
[2017-07-02 15:35] VITALS: PULSE 66
--- NOTE | 2017-07-02 16:00 | RADRPT ---
EXAM DATE/TIME: 07/02/2017 15:15 [facility] COMPARISON: CTA BRAIN W 3D RECON, July 01, 2017, 13:45. INDICATIONS : CVA. MEDICAL HISTORY : Stroke SURGICAL HISTORY : Carotid endarterectomy. Fusion, lumbar. ENCOUNTER: Initial ACUITY: 2 day PAIN SCORE: 5/10 LOCATION: Head Please note a normal MRA of the brain does not entirely exclude the possibility of a small aneurysm, nor the possibility of distal intracranial vessel disease. TECHNIQUE: 3D time of flight MRA was performed. Source images, multiplanar STS MIP, and 3D volume MIP reconstru ctions were reviewed. FINDINGS: Anterior circulation: Distal intracranial internal carotid arteries are patent with flow extending to the middle and anteri or cerebral arteries. There is no evidence for aneurysm, vessel truncation or stenosis, and no eviden ce for vascular malformation. Posterior circulation: Symmetric distal vertebral arteries with flow extending to basilar artery. There is no evidence for aneurysm, vessel truncation or stenosis, and no evidence for vascular malformation. CONCLUSION: 1. Unremarkable [place] MRA examination. Specifically, no significant stenosis or large vess el occlusion. Evin Lopez MD on July 02, 2017 at 15:53 Board Certified Radiologist. This report was verified electronically.
[2017-07-02] MEDS ORDERED: AGGR20025 PO (16:11)
--- NOTE | 2017-07-02 16:13 | HHI.PR ---
Addendum to Inpatient Note Addendum Reason: Additional Documentation Additional Information Patient condition tremendously improved since admission Brain MRA unremarkable Carotid ultrasound without any evidence of stenosis Therefore patient will be discharged home Discharge patient to home Condition on discharge: Improved Regular Diet as tolerated Ad Sruthi activity Rx written: See EMR Follow-up with primary care physician in one week Jairo Daigle MD Jul 02, 2017 16:12
== END 2017-07-02 16:58 | disposition home or self-care (01) | DRG 69 ==
LOC: PHED 13:23 → PHEDA 16:18 → N05A 20:52
PROVIDERS: ADMIT Hospitalist; ATTEND Hospitalist
DX: G45.9 Transient cerebral ischemic attack, unspecified (principal); I69.351 Hemiplegia and hemiparesis following cerebral infarction affecting right dominant side; I10 Essential (primary) hypertension; E78.5 Hyperlipidemia, unspecified; I25.10 Atherosclerotic heart disease of native coronary artery without angina pectoris; R26.9 Unspecified abnormalities of gait and mobility
CPT/HCPCS: 70450; 70496; 70498; 70544; 70551; 80048; 80061; 82550; 82552; 82607; 82948; 83036; 84443; 84484; 85025; 85027; 85384; 85610; 85730; 86850; 86900; 86901; 93005; 93880; 96361; 96374; J1644; J7030; Q9967